=== PATIENT | male | born 1980 | race Caucasian/White ===

== ENCOUNTER 2020-12-19 11:13 | Emergency (ER) | payer OTHER, BC, SELFPAY ==
--- NOTE | ~2020-12-19 | XR_ITS ---
EXAMINATION: XR foot RT min 3V DATE: 12/19/2020 11:47 INDICATION: Blunt trauma with heavy object falling on the dose of the right foot. TECHNIQUE: Dorsoplantar, two oblique and lateral views of the right foot were obtained. COMPARISON: None. FINDINGS: Mildly comminuted extra articular fracture of the right third distal phalanx with 2 minimally displac ed oblique fracture planes, one extending medially across the tuft and the second being at the tuft a nd extending laterally to the mid diaphysis. Alignment remains near-anatomic. No other fractures iden tified. Joint spaces are normal. Small bone island in the posterior calcaneus. A couple tiny calcific densities versus radiopaque foreign bodies in the subcutaneous soft tissues plantar to the medial as pect of the first metatarsophalangeal joint. IMPRESSION: 1. Minimally displaced mildly comminuted extra articular fracture of the right third distal phalanx. Reviewed, dictated and finalized at location A. [employer]
[2020-12-19 11:32] VITALS: BP 153/98; PULSE 65; RESP 20; TEMP 37.2; O2SAT 98
--- NOTE | 2020-12-19 11:36 | ED.LOWEXIN ---
HPI - Extremity Injury (Lower) General Chief Complaint: Extremity Injury, Lower Stated Complaint: right foot injury Time Seen by Provider: 12/19/20 11:25 Source: patient Mode of arrival: ambulatory Limitations: no limitations History of Present Illness HPI Narrative: Anil Haskins is a 40-year-old male with a prior medical history of high cholesterol who comes to [facility] with right foot injury that occurred at work yesterday. A large piece of pipe dropped on his foot and he stated toe was compressed. He currently is complaining of pain at 5 out of 10 he has difficulty moving his toes is edematous and third toe is large amount of ecchymosis on dorsum. Patient states he has been using ice on his foot and has had elevated since yesterday Related Data Allergies Allergy/AdvReac Type Severity Reaction Status Date / Time bandaid AdvReac Rash Uncoded 12/19/20 11:36 Review of Systems Review of Systems: Narrative: CONSTITUTIONAL: Denies fever, chills, sweats. EYES: Denies visual changes, redness, discharge. ENT: Denies rhinorrhea, congestion, sore throat, otalgia. CARDIOVASCULAR: Denies chest pain, palpitations, edema. RESPIRATORY: Denies dyspnea, wheezing, cough GASTROINTESTINAL: Denies abdominal pain, nausea, vomiting, diarrhea. GENITOURINARY: Denies dysuria, hematuria, abnormal discharge SKIN: Denies rash or itching. NEUROLOGIC: Denies numbness, or focal weakness. PSYCHIATRIC: Denies anxiety or depression. Extremity-right toe pain, does feel swollen, unable to walk on flat right foot PMFSH Past Medical History Medical History Family hx of prostate cancer High cholesterol Meckels diverticulum Family History Family History Mother Hypertension Hyperlipidemia Father Malignant neoplasm of prostate Other Family history of elevated blood lipids Social History Social History (Updated 12/19/20 @ 11:41 by Adeline Anna CNP) Smoking status: Current some day smoker Tobacco type: cigars Smokeless tobacco user: chewing tobacco Second hand tobacco smoke exposure: No Alcohol intake: current Drinks per week: 6 Substance use: never Gender identity (if verbalized by the patient): Male Comments at time of signature, I agree with nursing past medical, surgical, social and family history. There is no relevant family history pertinent to the presenting complaint. Patient's daughter is aware of the blood pressure is elevated and they are working on his diet and exercise program to avoid medication Exam Narrative: Exam Narrative: GENERAL: This is a well-nourished, well-developed patient, in mild distress. HEAD: normocephalic, atraumatic. EYES: Sclera clear/white. Vision is grossly intact. EARS: External ears normal. Hearing grossly intact. NOSE: External nose normal without nasal discharge, nares without redness, no rhinorrhea. THROAT: Mucous membranes moist, NECK: Neck supple, CARDIOVASCULAR: Regular rate and rhythm without murmurs, gallops, or rubs. RESPIRATORY: Clear to auscultation. Breath sounds equal bilaterally. No wheezes, rales, or rhonchi. GASTROINTESTINAL: Abdomen soft, SKIN: warm, intact with no suspicious lesions or rash, good texture and turgor. NEURO: awake, alert, and oriented to person, place and time. There were no obvious focal neurologic abnormalities. Steady gait EXTREMITIES: Normal range of motion on L-patient's right foot third toe circumferential ecchymosis, nail is intact, unable to bend or extend toes without pain, ecchymosis bottom of third and fourth toe BACK: Nontender without deformity Course Course Emergency Course: Patient comes to [facility] for treatment of foot injury that occurred at work yesterday X-ray showed minimally displaced mildly comminuted extra-articular fracture of the third distal phalanx Patient will be placed in Higinio wrap and boot;
== END 2020-12-19 12:17 | disposition home or self-care (01) ==
PROVIDERS: Emergency Provider Nurse Practitioner; PCP Internal Medicine
DX: S92.531A Displaced fracture of distal phalanx of right lesser toe(s), initial encounter for closed fracture (principal); W20.8XXA Other cause of strike by thrown, projected or falling object, initial encounter; E78.00 Pure hypercholesterolemia, unspecified; F17.290 Nicotine dependence, other tobacco product, uncomplicated
CPT/HCPCS: 73630; 99213; G0463

== ENCOUNTER 2022-08-20 08:19 | Outpatient (CLI) | payer OTHER, SELFPAY ==
[2022-08-20 19:19] LABS: Alanine Aminotransferase 27 U/L (6-50); Albumin Level 5.1 g/dL (3.5-5.1); Alkaline Phosphatase 76 U/L (38-126); Anion Gap 14 mmol/L (8-16); Aspartate Amino Transferase 25 U/L (17-59); Bilirubin,Total 0.6 mg/dL (0.2-1.3); Blood Urea Nitrogen 13 mg/dL (9-20); Calcium 9.6 mg/dL (8.4-10.2); Carbon Dioxide 26 mmol/L (22-30); Chloride 101 mmol/L (98-107); Cholesterol 217 mg/dL (0-200); Estimated Glomerular Filt Rate > 60; Glucose 115 mg/dL (65-110); HDL Direct 37 mg/dL; Potassium 5.1 mmol/L (3.4-5.0); Sodium 141 mmol/L (137-145); Triglycerides 137 mg/dL (<150)
[2022-08-20 19:30] LABS: LDL Cholesterol Direct 141 mg/dL
[2022-08-20 19:49] LABS: Prostate Specific Antigen 0.6 ng/mL (< OR = 4.0)
== END 2022-08-20 08:20 | disposition home or self-care (01) ==
LOC: ANHGOSHLAB 08:20
PROVIDERS: PCP Family Medicine; Visit Provider Family Medicine
DX: Z13.228 Encounter for screening for other metabolic disorders (principal); Z13.220 Encounter for screening for lipoid disorders; Z12.5 Encounter for screening for malignant neoplasm of prostate
CPT/HCPCS: 36415; 80053; 80061; 84153; G0103